=== PATIENT | female | born 1965 | race African-American/Black ===

== ENCOUNTER → 2018-02-25 | Outpatient (CLI) | payer OTHER ==
[2018-02-25 09:39] LABS: ABSOLUTE EOSINOPHILS 0.3 thou/uL (0.0-0.7); ABSOLUTE LYMPHOCYTES 1.1 thou/uL (0.8-5.3); ABSOLUTE MONOCYTES 0.4 thou/uL (0.0-1.2); ABSOLUTE NEUTROPHILS 3.5 thou/uL (1.6-8.1); BASOPHILS 0.2 %; EOSINOPHILS 6.5 %; HEMOGLOBIN 11.7 gm/dL (12.0-15.0); LYMPHOCYTES 21.1 %; MCH 27.8 pg (26.0-34.0); MCHC 32.6 g/dL (28.0-37.0); MCV 85.1 fL (80.0-100.0); MONOCYTES 7.4 %; MPV 7.7 fl. (7.2-11.1); NUCLEATED RBCS 0 /100WBC; PLATELET COUNT* 301 thou/uL (150-400); POLYS 64.8 %; RBC 4.23 mil/uL (4.20-5.00); RDW-CV 14.9 % (10.5-14.5); WBC 5.3 thou/uL (4.0-11.0)
[2018-02-25 10:16] LABS: ALKALINE PHOSPHATASE 106 U/L (46-116); ANION GAP 7 mmol/L (7-16); BUN 22 mg/dL (7-18); CALCIUM 9.5 mg/dL (8.5-10.1); CHLORIDE 106 mmol/L (98-107); CHOLESTEROL 208 mg/dL (<200); CO2 29 mmol/L (21-32); GLUCOSE 92 mg/dL (70-99); HDL CHOLESTEROL 61 mg/dL (>40); LDL CHOLESTEROL 135 mg/dL (<100); POTASSIUM 4.7 mmol/L (3.5-5.1); SGOT 20 U/L (15-37); SGPT 23 U/L (30-65); SODIUM 142 mmol/L (136-145); TC:HDL 3.4 Ratio (Not establshd); TOTAL BILIRUBIN 0.6 mg/dL (<0.1-1.0); TRIGLYCERIDE 63 mg/dL (<150); VLDL 13 mg/dL (<40)
[2018-02-25 11:29] LABS: SERUM ASSESSMENT Clear
[2018-02-25 19:07] LABS: GLYCOHEMOGLOBIN (HGB A1C) 5.6 % (4.8-5.6)
== END ==
LOC: M.LAB 09:18
PROVIDERS: Nurse Practitioner Family
DX: Z00.01 Encounter for general adult medical examination with abnormal findings (principal); I10 Essential (primary) hypertension; E28.2 Polycystic ovarian syndrome

== ENCOUNTER → 2018-06-27 | Outpatient (CLI) | payer OTHER | LOC: M.RAD 13:26 | DX: M17.0 Bilateral primary osteoarthritis of knee (principal) ==